=== PATIENT | female | born 1930 | race Caucasian/White ===

== ENCOUNTER → 2017-11-28 | Outpatient (CLI) | payer OTHER, MEDICARE ==
[~2017-11-28] MED LIST: ALLERGY MEDICINE PO; ATIVAN0.5 MG PO; FIORICET 50-301 EACH PO; MOBIC15 MG PO; SYNTHROID125 MCG PO; TYLENOL REGULA325 MG PO; ZOLPIDEM TARTRAT5 MG PO
== END | disposition home or self-care (01) ==
LOC: CT 10:42
DX: S02.40CA Maxillary fracture, right side, initial encounter for closed fracture (principal); J34.89 Other specified disorders of nose and nasal sinuses; M26.69 Other specified disorders of temporomandibular joint
CPT/HCPCS: 70486